=== PATIENT | male | born 1940 | race Caucasian/White ===

== ENCOUNTER 2023-06-28 09:01 | Emergency (ER) | payer OTHER, SELFPAY ==
[2023-06-28 09:03] VITALS: BP 153/83; BMI 21.6
--- NOTE | 2023-06-28 09:13 | ED.GENMED ---
History of Present Illness
General
Chief Complaint: Bowel Problem
Time Seen by Provider: 06/28/23 09:06
Travel History
Have you had any contact with someone who has COVID-19?: No
Do you have any symptoms of coronavirus? Fever > 100 degrees, chills, cough, shortness of breath, sore throat, loss of taste or smell, muscle aches, or headache?: No
History of Present Illness
History of Present Illness:
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
constipation. The patient has apparently had no bowel movements for 5 days and has not urinated since yesterday. Patient has a history of urinary retention status post TURP procedure in February. No reported fevers. The patient states he has not
been passing any flatus or has no history of abdominal surgeries.
Past History
Past History
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
ED Past Surgical History: Urological (TURP)
Patient has exhibited threatening behavior?: No
PSI?: No
Social History
Tobacco: Former smoker
Alcohol: None
Personal:
Living: with family
Employment: Retired
Family History
Family History: Negative Diabetes, Hypertension or CAD
Review of Systems
Review of Systems
Allergies reviewed?: Yes
All Other Systems: ROS reviewed and negative except as documented in HPI and ROS
Phy Exam
Physical Exam
Physical Exam:
GEN: Well appearing, NAD, WDWN
Eyes: PERRLA, EOMs intact, no scleral icterus
HENT: NCAT, oral mucosa moist, no JVD, no cervical adenopathy.
Lungs: CTAB, no wheezes, rales, rhonchi, normal chest wall excursion
Cardiac: Bradycardic and irregular, no M/R/G, no peripheral edema. Radial pulses 2+ bilat
Abdomen: S, moderate suprapubic distention with tenderness, NABS, no masses or hepatosplenomegaly
Neuro: Alert and oriented to baseline, right-sided hemiparesis
MSK: No gross deformity or ecchymosis. No edema. No digital clubbing
Skin: No rashes, petechiae. Normal color, no pallor or jaundice.
Psych: Calm, cooperative, proper hygiene
Course
Orders/Labs/Results
Orders:
Orders
06/28/23 09:13
Luna Placement- Treatment ONCE
Reason for insertion: Acute Retention
CR Obstruct Series W/pa Chest Urgent
Comment:
Reason For Exam: abd pain, constipation
06/28/23 09:24
Urinalysis Reflex To Culture Urgent
Date Specimen was Collected: 06/28/23
Time Specimen was Collected: 09:21
Urine Microscopic Reflex Cult Urgent
Urine Culture Urgent
JOHN Source: U
Specimen Description:
Date Specimen was Collected: 06/28/23
Time Specimen was Collected: 09:21
Abnormal Lab Results
06/28/23
09:24
Ur Occult Blood Reflex 3+ A
(Negative)
Urine Nitrite (Reflex) Positive A
(Negative)
Leukocyte Esterase Rfl 2+ A
(Negative)
Urine RBC 26-30 A /HPF
(0-2)
Urine WBC (Reflex) 26-30 A /HPF
(0-5)
Urine Bacteria (Reflex) Many A
(Negative)
Vital Signs
Initial and Last Documented VS:
Initial Vital Signs
Temp Pulse Resp BP Pulse Ox
97.9 F 68 16 153/83 97
06/28/23 09:03 06/28/23 09:03 06/28/23 09:03 06/28/23 09:03 06/28/23 09:03
Last Documented Vital Signs
Temp Pulse Resp BP Pulse Ox
97.9 F 47 17 153/83 94
06/28/23 09:03 06/28/23 09:45 06/28/23 09:45 06/28/23 09:03 06/28/23 09:45
MDM/Problems Addressed
MDM/Problems Addressed:
79-year-old male with prior history of urinary retention status post TURP presents with acute urinary retention. Luna catheter was placed with greater than 1 L of urine drained. Urinalysis is consistent with UTI, will start antibiotics particular
given the new Luna placement. He is also reporting constipation, his abdomen is soft and nontender after Luna placement thus I do not suspect bowel obstruction. Obstruction series x-rays were obtained showing stool burden with no evidence for
obstructive pathology. Recommend laxatives, ultimately I suspect that decompression of his bladder will aid in passage of stool. Recommend outpatient urology follow-up
*Critical Care Note
Total Time (30-74mins, 75-104mins- exclusive of procedures): Not Applicable
ED Attending Note
-
Portions of this chart may have been created with voice recognition software.� Occasional wrong word or��sound alike� substitutions may have occurred due to the inherent limitations of voice recognition software.
Discharge Plan
Departure
Patient Disposition: Home (Routine Discharge)
Date of Disposition: 06/28/23
Time of Disposition: 10:13
Patient with high blood pressure during this ER visit?: No
Discharge Problem:
Acute urinary retention, Acute UTI, Constipation
Instructions: Urinary Retention (DC)
Prescriptions:
New
cephalexin 500 mg capsule
500 mg PO BID 5 Days Qty: 10 0RF
No Action
clopidogrel 75 MG tablet
75 mg PO DAILY
sertraline 100 MG tablet
100 mg PO DAILY
amlodipine 5 MG tablet
5 mg PO BID
acetaminophen 500 MG tablet
1,000 mg PO TID
tamsulosin 0.4 mg Capsule
0.4 mg PO BID Qty: 120 0RF
tramadol 50 mg Tablet
50 mg PO Q6HPRN PRN (Reason: moderate pain)
cyclobenzaprine 5 mg Tablet
10 mg PO DAILYPRN PRN (Reason: muscle spasms)
quetiapine 25 mg Tablet
25 mg PO QPM
sennosides [senna] 8.6 mg Tablet
17.2 mg PO Q48H
loperamide 2 mg Capsule
2 mg PO DAILYPRN PRN (Reason: diarrhea)
atorvastatin 10 mg Tablet
10 mg PO HS
lisinopril 20 mg Tablet
20 mg PO DAILY
magnesium hydroxide [Milk of Magnesia] 400 mg/5 mL Suspension
2,400 mg PO DAILYPRN PRN (Reason: if no bm x 2 days)
bisacodyl [Dulcolax (bisacodyl)] 10 mg Suppository
10 mg WV DAILYPRN PRN (Reason: if no bm in 3 days)
Fleet Enema 19-7 gram/118 mL Enema
118 ml WV DAILYPRN PRN (Reason: in no bm in 4 days)
docusate sodium 100 mg Capsule
100 mg PO BID
acidophilus-sporogenes 35 million- 25 million cell Tablet
1 tab PO DAILY
pregabalin 75 mg Capsule
75 mg PO HS
tramadol 100 mg Tablet
100 mg PO Q6HPRN PRN (Reason: severe pain)
Gemtesa 75 mg Tablet
75 mg PO DAILY
cyanocobalamin (vitamin B-12) 1,000 mcg tablet
1,000 mcg PO MOWEFR
lorazepam [Ativan] 0.5 mg tablet
0.5 - 1 mg PO HSPRN PRN (Reason: agitation)
metoprolol succinate 25 mg tablet extended release 24 hr
12.5 mg PO DAILY
Referrals:
Jannet Garcias MD [Family Provider] -
Casimiro Knight MD [Active] -
Activity Restrictions/Additional Instructions:
Good should be administered Miralax 17g once every other day for up to 7 days as needed for constipation
Interventions
Interventions:
*Risk Screen - Suicide Last Done: 06/28/23 09:03
*General Assessment Last Done: 06/28/23 09:03
*Neglect/Abuse Screening Last Done: 06/28/23 09:03
ED- Fall Risk Assessment Last Done: 06/28/23 09:03
*ED COVID-19 Vaccine History Last Done: 06/28/23 09:03
GF-Miqjlz-Tipwezrfaf Assessment Last Done: 06/28/23 09:03
[2023-06-28 09:38] LABS: Urine Albumin Trace (Neg - Trace); Urine Bilirubin Negative (Negative); Urine Character Slightly Cloudy (Clear); Urine Color Yellow; Urine Glucose Negative (Negative); Urine Ketone Negative (Negative); Urine Leukocyte 2+ (Negative); Urine Nitrite Positive (Negative); Urine Occult Blood 3+ (Negative); Urine Specific Gravity 1.015 (<1.030); Urine Urobilinogen Negative (Neg - 1+)
[2023-06-28 10:04] LABS: Urine Amorphous Seen; Urine Mucus Few; Urine Squamous Cell 0-2 /LPF (Few)
[2023-06-28 10:05] LABS: Urine Bacteria Many (Negative); Urine Red Blood Cell 26-30 /HPF (0-2); Urine White Cell 26-30 /HPF (0-5)
== END 2023-06-28 10:32 | disposition home or self-care (01) ==
LOC: EMR 09:01
PROVIDERS: Physician Assistant; EMERGENCY PHYSICIAN Emergency Medicine; FAMILY PHYSICIAN Student in an Organized Health Care Education/Training Program
DX: R33.8 Other retention of urine (principal); N39.0 Urinary tract infection, site not specified; K59.00 Constipation, unspecified; I48.91 Unspecified atrial fibrillation; I10 Essential (primary) hypertension; E78.00 Pure hypercholesterolemia, unspecified; F03.90 Unspecified dementia, unspecified severity, without behavioral disturbance, psychotic disturbance, mood disturbance, and anxiety; I69.251 Hemiplegia and hemiparesis following other nontraumatic intracranial hemorrhage affecting right dominant side; Z87.891 Personal history of nicotine dependence; Z90.79 Acquired absence of other genital organ(s)
CPT/HCPCS: 74022; 81003; 81015; 87077; 87086; 87186; 99283

== ENCOUNTER → 2023-10-02 09:38 | Outpatient (REF) | payer OTHER, SELFPAY ==
[2023-10-02 10:23] LABS: Urine Albumin Trace (Neg - Trace); Urine Bilirubin Negative (Negative); Urine Character Slightly Cloudy (Clear); Urine Color Yellow; Urine Glucose Negative (Negative); Urine Ketone Trace (Negative); Urine Leukocyte 2+ (Negative); Urine Nitrite Positive (Negative); Urine Occult Blood 1+ (Negative); Urine Specific Gravity 1.015 (<1.030); Urine Urobilinogen 1+ (Neg - 1+)
[2023-10-02 10:44] LABS: Urine Mucus Moderate
[2023-10-02 10:46] LABS: Urine Amorphous Seen; Urine Urothelial Cell 0-2 /LPF (FEW)
[2023-10-02 10:49] LABS: Urine Bacteria Many (Negative); Urine White Cell 70-80 /HPF (0-5)
== END ==
LOC: OLABWIL 09:38
PROVIDERS: ATTENDING PHYSICIAN Student in an Organized Health Care Education/Training Program
DX: R30.0 Dysuria (principal)
CPT/HCPCS: 81003; 81015; 87077; 87086; 87186